=== PATIENT | female | born 1990 | race African-American/Black ===

== ENCOUNTER 2016-10-02 05:35 | Inpatient (IN) | payer MEDICARE, OTHER ==
[~2016-10-02] VITALS: Ht 160 cm; Wt 70.0 kg
[2016-10-02] MEDS ORDERED: DIBUCAINE 1% OINTMENT 30GM TOP PRN (06:00)
[2016-10-02] MEDS ORDERED: OXYTOCIN INJ 10 UNITS/ML VIAL (J2590) IM ONE (06:00)
[2016-10-02] MEDS ORDERED: RHOGAM 300 MCG (1500 IU) INJ (J2790) IM SCH (06:00)
[2016-10-02] MEDS ORDERED: ACETAMINOPHEN 500 MG TAB PO PRN (06:00)
[2016-10-02] MEDS ORDERED: MEASLES,MUMPS,RUBELLA VACCINE INJ (MMR-II) (90707) SC SCH (06:00)
--- NOTE | 2016-10-02 06:14 | HPEPDOC ---
Obstetrical History & Physical General Date of Admission Oct 02, 2016 at 05:43 History of Present Illness Annette is a 26yo with SIUP at 39w2d presented to L&D complaining of her ctx starting at 0400 and water breaking at 0500. Feels good movement. course: Hx of PTD at 36wk and close inter- interval, received IM progesterone from 16-36 weeks. Anemia on iron. Chief Complaint: Contractions, term, LOF, term Information Provided By: Patient Care Care: Good Care Dating Final EDC: Oct 07, 2016 Final EDC by: LMP Antepartum Course Diagnos(e)s course: Hx of PTD at 36wk and close inter- interval, received IM progesterone from 16-36 weeks. Anemia on iron. Height (inches): 63 Pre- weight (lbs.): 134 Admission Weight (lbs.): 159 Change in Weight (lbs.): 25 Past Medical History Past Obstetrical History #1: Past Obstetrical History: Multigravida Date of Delivery: Jan 08, 2010 Gestation: 8 (early sab) Past Obstetrical History #2: Past Obstetrical History: Multigravida Date of Delivery: Oct 09, 2010 Gestation: 38 Type of Delivery: Spontaneous Vaginal Del. Sex of Infant: Male Complications: No Past Obstetrical History #3: Past Obstetrical History: Multigravida Date of Delivery: Aug 11, 2015 Gestation: 36 Type of Delivery: Spontaneous Vaginal Del. 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 BREAST: . ABDOMEN: Gravid and non-tender to touch. FETUS: Is vertex (VTX) by sterile vaginal examination (SVE) HEART RATE: Regular rate and rhythm. LUNGS: Clear to auscultation (CTA). EXTREMITIES: No edema. Laboratory Data [facility] Laboratory Tests 2 10/02/16 05:47: Serology Scanned Report Hepatitis B Testing Pertinent Laboratoy Data Blood Type: B+ RBC Antibody Screen: Negative HIV: Negative Hepatitis B: Negative Hepatitis C: Unknown Rapid Plasma Reagin: Nonreactive Rubella: Immune Varicella: Immune Chlamydia/Gonorrhea: Negative Group B Streptococcus: Negative Glucose Tolerance Test: 89 Anatomy Ultrasound Ultrasound Date: Jun 16, 2016 Placenta Location: Posterior Normal Anatomy: Yes Placenta Previa: No Steroid Therapy Steroid Therapy: No Vaginal Examination Dilation: 10 cm Effacement: 80+% Station: +3 Cervical Consistency: other Cervical Position: Other Presentation: Cephalic presentation Assessment Heart Rate (FHR): 140 Variability: Moderate Accelerations: Positive Decelerations: None Tocometer Contractions: Yes Frequency: regular, every 2-5 min. Duration: greater than 60 seconds Strength: palpated as strong Assessment/Plan Assessment Annette morataya a 26yo with SIUP at 39w2d presented to L&D complaining of ctx starting at 0400 and water breaking at 0500. SCE on presentation C/C/+3, cephalic, Cat I FHRT. course: Hx of PTD at 36 and close inter- interval, received IM progesterone from 16-36 weeks. Anemia on iron. Plan Admit and orient. 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 Diet: clear liquids Group B Streptococcus (GBS) negative Labs and intravenous (IV) per unit protocol. Anticipate Dr. Flores Khoury MD [place] MD Oct 02, 2016 06:14
--- NOTE | 2016-10-02 06:21 | DNPDOC ---
Delivery Note Delivery Note DATE OF DELIVERY: Oct 02, 2016 at 05:46 PREDELIVERY DIAGNOSIS: 39w2d gestation and labor. 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 Flores Khoury MD ANESTHESIA: none ESTIMATED BLOOD LOSS: 150 mL. FINDINGS: 6 pound 12 ounce female infant, Score 8/9 DELIVERY SUMMARY: Annette is a 26yo G4 now P2113 who was admitted to L&D for active labor/SROM. On presentation she was C/C/+3. She had an uncomplicated precipitous of a viable female infant at 0546 on 2016 at 39w2d. Head delivered OA, restituted LOUIS. No nuchal cord. Right shoulder delivered followed by posterior shoulder and corpus. Cord clamped x2 and cut by FOB. Infant mouth/nares bulb suctioned. Spontaneous cry noted. Baby placed on mother's abdomen. Apgars 8/9, weight 3056g. No indication to obtain cord blood. With gentle downward guidance and suprapubic pressure, placenta delivered spontaneously and intact with a centrally inserted cord. Fundal massage until uterine fundus firm; fundus at U- 2cm. Pitocin 10 units IM administered. Inspection of perineum and vaginal wall revealed superficial abrasions at introitus with total hemostasis and no need for repair. Mom and in stable condition. Dr. Flores Khoury MD [place] MD Oct 02, 2016 06:21
[2016-10-02] MEDS ORDERED: PRENTAB55 PO (06:34)
[2016-10-02] MEDS: IBUPROFEN 800 MG TAB PO PRN ×2 (07:52→17:14)
[2016-10-02 08:47] VITALS: BP 143/69
[2016-10-02] MEDS: PRENATAL VITAMIN TAB PO SCH (09:47)
[2016-10-02] MEDS: DOCUSATE SODIUM 100 MG CAP PO SCH ×2 (09:47→21:20)
[2016-10-02 12:38] LABS: MEAN CORPUSCULAR HGB CONC 33.9 g/dl (32.0-36.5); MEAN CORPUSCULAR VOLUME 85.7 fl (80.0-96.0); WHITE BLOOD COUNT 9.2 K/mm3 (4.0-10.0)
[2016-10-02 18:00] VITALS: BP 116/69
[2016-10-03] MEDS: IBUPROFEN 800 MG TAB PO PRN (05:41)
[2016-10-03 05:47] VITALS: BP 116/55
[2016-10-03] MEDS: DOCUSATE SODIUM 100 MG CAP PO SCH (08:25)
[2016-10-03] MEDS: PRENATAL VITAMIN TAB PO SCH (08:25)
[2016-10-03] MEDS ORDERED: TYLE325T5 PO (09:55)
[2016-10-03] MEDS ORDERED: COLA100C PO (09:55)
[2016-10-03] MEDS ORDERED: NUPE1OIN2 TOP (09:55)
[2016-10-03] MEDS ORDERED: IBUP600T26 PO (09:55)
--- NOTE | 2016-10-03 13:36 | DSES ---
DATE OF ADMISSION: 10/02/2016 DATE OF DISCHARGE: This is a 4, para now 3, admitted in precipitous and uncomplicated labor, had an uncomplicated spontaneous vaginal delivery, live female , 6 pounds 12 ounces, 3056 grams, scores of 8 and 9 at one and five minutes respectively. On her first day, we discussed phlebitis, cystitis, endometritis and cellulitis, diet, excise, pain management, perineal, breast and wound care. She is uncertain as regards to control but will discuss that at her 6-week checkup. On discharge, her blood pressure is 116/55, respirations are 18, pulse is 78 and temperature is 98.6. Her hemoglobin is 10.8 hematic 31.8 and platelets are 173. The rest of the examination is unremarkable. She is in the normocephalic, atraumatic. Neck: Full range of motion. Pupils equal and reactive to light. Distal pulses are symmetric. No evidence of deep vein thrombosis (DVT), pulmonary embolism (PE) or superficial phlebitis. Lungs are clear bilaterally to bases. No wheezes or rhonchi. Uterus is nontender, uterus two below. Lochia is moderate. Bowel sounds are active. Perineum is intact. No rashes, lesions or pruritus. No arthralgia, myalgia. No complaints of cough, wheezes, shortness of breath or dyspnea on exertion. No chest pain. No bleeding. Neuro complete. No incontinency, urgency frequency. No nausea, vomiting, diarrhea or constipation. No endocrine issues. 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 In summary, we have a term gestation with active rapid delivery, to follow up in the office in six weeks' time.
== END 2016-10-03 14:40 | disposition home or self-care (01) | DRG 775 ==
LOC: M LDO 05:35 → M LDI 05:43 → M OBS 08:30
PROVIDERS: ADMIT Obstetrics & Gynecology; ATTEND Obstetrics & Gynecology
PROC: 10E0XZZ Delivery of Products of Conception, External Approach (ICD-10-PCS; principal; 2016-10-02)
DX: O62.3 Precipitate labor (principal); Z37.0 Single live birth; Z3A.39 39 weeks gestation of pregnancy; D64.9 Anemia, unspecified; O99.02 Anemia complicating childbirth

== ENCOUNTER 2016-10-07 12:22 | Emergency (ER) | payer MEDICARE, OTHER ==
[~2016-10-07] VITALS: Ht 160 cm; Wt 72.6 kg
[~2016-10-07 12:22] MED LIST: COLA100C3 PO; IBUP600T26 PO; NUPE1OIN2 TOP; PRENTAB55 PO; TYLE325T5 PO
[2016-10-07 12:23] VITALS: BP 143/74
== END 2016-10-07 13:06 | disposition home or self-care (01) ==
LOC: M ED 13:06
DX: R60.9 Edema, unspecified (principal)